=== PATIENT | female | born 1990 | race Caucasian/White ===

== ENCOUNTER → 2024-01-26 | Outpatient (CLI) | payer MEDICAID, SELFPAY ==
--- NOTE | 2024-01-26 08:45 | XR_ITS ---
Examination: MRI brain without intravenous contrast. Date and time of exam: January 26, 2024 0848 hrs. Indications: Headaches with vision loss dizziness episodes beginning one year ago, episodes lasting up to 40 seconds Technique: Multiple axial and sagittal images of the brain obtained. Siemens high-resolution 1.5 Feli short bore scanners utilized. Sagittal sections, T1-weighted, TR 500, TE 14, are performed. Axial sections proton-density and T2-weighted have been obtained. Inversion recovery axial images, TR 9, 260, TE 111, TI 2500. Diffusion weighted images, axial sections, TR 4800, TE 128, B value 1000 Axial sections, ADC map, TR 4800, TE 128 Findings: Enlargement of the sella turcica is not present. The optic chiasm and infundibular are not remarkable. Prepontine and interpeduncular cisterns are not enlarged. There is no localized enlargement of the medulla or desiree. Fourth ventricle and cerebellar tonsils appear normal in position. No subacute area of hemorrhage density is seen. Mass in the cerebellopontine angle region is not evident. Globes symmetrical. Orbital musculature including medial lateral rectus muscles do not exhibit abnormality. Diffusion-weighted images demonstrate no focus of restricted diffusion. Single punctate focus increased signal left parietal lobe FLAIR image 15 Mass effect upon the ventricular system is not identified. Impression: Negative for acute hemorrhage, mass effect or midline shift Negative for acute infarct Single punctate focus increased signal left parietal lobe, seen with early demyelinating disease, clinical correlation advised
== END | disposition home or self-care (01) ==
LOC: SMRI 07:58
PROVIDERS: PCP Physician Assistant; Referring Provider Physician Assistant; Visit Provider Physician Assistant
DX: G93.9 Disorder of brain, unspecified (principal)
CPT/HCPCS: 70551

== ENCOUNTER 2024-02-29 12:54 | Emergency (ER) | payer MEDICAID, SELFPAY ==
[2024-02-29 13:11] VITALS: BP 119/79; PULSE 86; RESP 18; TEMP 36.8; O2SAT 99; BMI 24.3
--- NOTE | 2024-02-29 13:14 | XR_ITS ---
Examination: CT brain head without contrast. 2-D sagittal coronal reconstructions Date and time of exam:February 28, 2024 1609 hrs. Indications: Onset sharp head pain and dizziness today CTDI: vol (mGy):45.9 DLP: (mGycm):927 Technique: Multiple CT axial sections of the brain have been obtained, 5 mm slice thickness. Contrast has not been administered. 2-D sagittal, coronal reconstructions have been obtained Low dose protocols were performed. One or more of the following dose reduction techniques were used; automated exposure control, adjustment of the mA and/or KV according to patient size, use of iterative reconstruction technique. Findings: No significant ventricular enlargement. Intra-axial or extra-axial hemorrhage density is not seen. No mass effect or midline shift Basal cisterns are not remarkable. Fourth ventricle is midline. Cranial vault intact. Impression: Negative for acute hemorrhage, mass effect or midline shift If symptoms persist, consider brain MRI follow-up
--- NOTE | 2024-02-29 13:14 | EKG_ITS ---
[facility] Test Date: 2024-02-29 Pat Name: VERONICA SOLIS Department: Room: - Gender: Female Human Resource Adviser: : 1990 Requested By: Gee Lynch Order Number: [id number] Reading MD: Gee Lynch Measurements Intervals [place] Rate: 91 P: 57 RI: 172 QRS: 98 QRSD: 89 T: -24 QT: 350 QTc: 433 Interpretive Statements SINUS RHYTHM BORDERLINE RIGHT AXIS DEVIATION [QRS AXIS > 90] POSSIBLE RIGHT VENTRICULAR CONDUCTION DELAY [RSR (QR) IN V1/V2] MODERATE T-WAVE ABNORMALITY, CONSIDER INFERIOR ISCHEMIA [-0.1+ mV T WAVE IN II/aVF] Compared to ECG 05/09/2022 05:47:34 Possible ischemia now present T-wave abnormality still present /store/S0/[id number]/ecg/[id number].pdf
--- NOTE | 2024-02-29 13:14 | PD.EDRME ---
[facility] Arrival date/time: 02/29/24 12:54 33-year-old female with no known medical history presents to the emergency room with a chief complaint of a sudden onset of a 10 out of 10 headache, loss of vision, chest pain and palpitations 1 hour ago. I have greeted and performed a focused initial assessment of this patient. A comprehensive ED assessment and evaluation of the patient, analysis of all test results, and completion of the medical decision making process will be conducted by additional ED providers. Chief Complaint: Headache Time Seen by Provider: 02/29/24 13:08 Vital signs: Vital Signs Temperature 98.3 F 02/29/24 13:11 Pulse Rate 86 02/29/24 13:11 Respiratory Rate 18 02/29/24 13:11 Blood Pressure 119/79 02/29/24 13:11 Pulse Oximetry (%) 99 02/29/24 13:11 Oxygen Delivery Method Room Air 02/29/24 13:11 Vital signs reviewed by provider: Yes
[2024-02-29 13:42] LABS: Collection Type, Urine Clean Catch
[2024-02-29 13:51] LABS: Basophils % (Auto) 0 % (0-2.5); Eosinophils # (Auto) 0.2 Thou/mm3 (0.0-0.5); Eosinophils % (Auto) 4 % (0-10); Hemoglobin 12.4 g/dL (12.0-16.0); Immature Granulocytes % (Auto) 0 % (0-0); Immature Granulocytes Auto 0.01 Thou/mm3 (0.00-0.00); Lymphocytes % (Auto) 22 % (10-50); Mean Corpuscular HGB Conc 33.5 g/dl (31.0-37.0); Mean Corpuscular Hemoglobin 28.8 pg (25.0-35.0); Mean Corpuscular Volume 86 fL (80-100); Monocytes # (Auto) 0.4 Thou/mm3 (0.0-0.8); Monocytes % (Auto) 8 % (0-12); Neutrophils % (Auto) 66 % (37-80); Nucleated Red Blood Cell % 0 /100 WBC (0); Platelet Count 270 Thou/mm3 (140-440); White Blood Count 4.6 Thou/mm3 (3.6-11.0)
[2024-02-29 13:55] LABS: Bacteria,Urine Rare; Bilirubin,Urine Negative (Negative); Blood,Urine Trace (Negative); Clarity,Urine Clear (Clear/Hazy); Color,Urine Lt-Yellow (Lt Yel-Yel); Glucose, Urine Negative (Negative); Ketones,Urine Negative (Negative); Leukocyte Esterase,Urine Negative (Negative); Nitrite,Urine Negative (Negative); Protein,Urine Negative (Neg - Trace); RBC,Urine 2 /hpf (0-3); Specific Gravity,Urine 1.021 (1.001-1.035); Squamous Epithelial Cell,Urine 4 /hpf (0-5); Urobilinogen,Urine Negative mg/dL (0.0-1.0); WBC,Urine 1 /hpf (0-5)
[2024-02-29 14:12] LABS: Alanine Aminotransferase 12 U/L (10-49); Albumin, Serum 4.9 gm/dL (3.5-5.0); Albumin/Globulin Ratio 1.8 (1.2-2.2); Alkaline Phosphatase 64 U/L (46-116); Anion Gap 5 (7-16); Aspartate Amino Transferase < 10 U/L (0-34); BUN/Creatinine Ratio 14 Ratio (12-20); Bilirubin,Total 0.4 mg/dL (0.3-1.2); Blood Urea Nitrogen 11 mg/dL (9-23); Calcium 10.4 mg/dL (8.3-10.6); Calcium (Corrected) 10.4 mg/dL (8.5-10.1); Carbon Dioxide 27.7 mMol/L (20.0-31.0); Chloride 104 mMol/L (98-107); Creatinine (Component) 0.8 mg/dL (0.6-1.3); Estimated Creatinine Clearance 95.4 mL/min (>60); Globulin 2.8 gm/dL (2.3-3.5); Glucose 117 mg/dL (74-106); Osmolality,Calculated 274 (275-295); Potassium 4.1 mMol/L (3.4-5.1); Sodium 137 mMol/L (136-145); Total Protein 7.7 gm/dL (5.7-8.2); Troponin I < 0.002 ng/mL (0.0-0.045); eGFR > 60 See Note
[2024-02-29 17:04] VITALS: BP 116/74; PULSE 70; RESP 18; TEMP 37; O2SAT 99
--- NOTE | 2024-02-29 17:46 | EDNOTE_ITS ---
<Statement entered by Almaz Kathleen MD - 03/06/24 16:21> As co-signing physician, I was present and available for consult prn. I concur with the plan and care as documented by the midlevel provider. ED General RME/HPI General Chief complaint: Headache Stated complaint: HEADACHE WITH CHEST PAIN Time Seen by Provider: 02/29/24 13:08 Arrival date/time: 02/29/24 12:54 CC: Headache loss of vision onset approximately 4 hours ago, no prior history of similar events patient states she is also had mild chest pain and palpitations. These have all resolved other than a mild headache. Patient states she has had 3 episodes of the headache since signing in, but no loss of vision. Patient was observed ambulating from the waiting room without any complication looking around stating that sure vision has recovered completely. Patient denies any nausea vomiting shortness of breath difficulty breathing or fever. Patient informs me that she already has a follow-up with a neurologist via referral from her PCP for the same thing. RME / HPI RME / HPI narrative: 02/29/24 12:54 33-year-old female with no known medical history presents to the emergency room with a chief complaint of a sudden onset of a 10 out of 10 headache, loss of vision, chest pain and palpitations 1 hour ago. I have greeted and performed a focused initial assessment of this patient. A comprehensive ED assessment and evaluation of the patient, analysis of all test results, and completion of the medical decision making process will be conducted by additional ED providers. Related Data Home Medications ?Medication ?Instructions ?Recorded ?Confirmed doxycycline monohydrate 100 mg 100 mg PO QDAY 10/14/20 10/14/20 capsule ferrous sulfate 325 mg (65 mg 325 mg PO BID 10/14/20 10/14/20 iron) tablet Previous Rx's ?Medication ?Instructions ?Recorded docusate sodium 100 mg capsule 100 mg PO BID #40 caps 10/15/20 (Colace) hydrocodone 5 mg-acetaminophen 325 1 tab PO Q6H PRN pain (scale score 10/15/20 mg tablet 7-10) #20 tabs ibuprofen 600 mg tablet 600 mg PO Q8H PRN pain (scale 10/15/20 score 4-6) #15 tabs Allergies Allergy/AdvReac Type Severity Reaction Status Date / Time No Known Allergies Allergy Verified 02/29/24 12:58 Review of Systems Review of Systems Narrative Review of Systems: GEN: No fever, no chills, no weight loss EYES: No discharge, no visual changes, no pain HEENT: No ear pain, no congestion, no sore throat PULM: No shortness of breath, no cough, no congestion CV: No chest pain, no dyspnea on exertion, no palpitations GI: No nausea, no vomiting, no diarrhea, no pain, no constipation : No frequency, no urgency, no dysuria MUSC/SKEL: No joint pain, no back pain SKIN: No rash PSYCH: No hallucinations, no depression HEME/LYMPH: No easy bleeding or bruising tendencies NEURO: No weakness, + headache Past Medical History Past Medical History NEUROLOGIC: Negative Neurological Disorders or Seizures CARDIAC: Positive Cardiac Disorders, Cardiac Arrhythmia and Atrial Fibrillation; Negative Congestive Heart Failure RESPIRATORY: Negative Chronic Obstructive Pulmonary Disease (COPD) GASTROINTESTINAL: Positive Gall Bladder Disease (gallstones); Negative Gastrointestinal Disorders or Hepatitis GENITOURINARY: Negative Genitourinary Disorders or Renal Disease REPRODUCTIVE: Positive Previous Pregnancies MUSCULOSKELETAL: Negative Musculoskeletal Disorders ENDOCRINE: Positive Hypothyroidism (NO MEDS); Negative Endocrine Disorders, Diabetes Mellitus Type 1 or Diabetes Mellitus Type 2 HEMATOLOGIC: Positive Anemia; Negative Blood Disorders OTHER HISTORY: Positive Chicken Pox; Negative Hospitalization, Autoimmune Disease, Shingles, Falls, Blood Transfusions, Blood Transfusion Reaction, Anesthesia Reactions, Chemotherapy, Radiation Therapy, MRSA, Measles, Mumps, Rubella (Tamazight Measles) or Cancer Family History FAMILY HISTORY: Positive Family Cardiac Disorders (MOTHER ([place])) and Family Surgery (MOTHER); Negative Family Psychiatric Problems, Family Respiratory Disorders, Family Gastrointestinal Problems, Family Cancer or Family Anesthesia Reaction Surgical History SURGICAL: Positive Section; Negative Cardiac Surgery, Ear Surgery, Eye Surgery, Nose Surgery, Tonsillectomy, Joint Replacement or Lumpectomy Social History SMOKING STATUS: Never smoker ED Exam Narrative Physical exam: [General: Not in any acute distress Head normocephalic HEENT: Eyes pupils are PERRLA EOMs are intact, all the subsystems of HEENT are within acceptable limits Neck is supple nontender Chest equal chest rise nontender to palpation Respiratory: Clear to auscultation no wheezes crackles or rubs CV: Rate rhythm is regular no murmurs rubs or clicks Abdomen is distended secondary to body habitus soft nontender no masses positive bowel sounds all 4 quadrants Back: No CVA tenderness no spinous process tenderness from cervical spine thoracic and lumbar spine Skin: Intact no petechiae rash induration ulceration or crepitus Extremities: Moving all extremity against resistance cap refill less than 2 seconds neurosensory intact Neuro: Awake alert oriented x3 Glascow coma 15 no focal deficits] cranial nerves II through XII are grossly intact. Course Quality Measures none Orders Category Date Time Status EKG (ED ONLY) *Do not use* NOW Care 02/29/24 13:[address] head/brain wo con Stat Exams 02/29/24 13:14 Completed EKG (ED Only) Stat Exams 02/29/24 13:14 Draft CBC Stat Lab 02/29/24 13:44 Completed Comprehensive Metabolic Panel Stat Lab 02/29/24 13:44 Completed Troponin I Stat Lab 02/29/24 13:44 Completed Urinalysis Stat Lab 02/29/24 13:34 Completed Urine Culture Stat Lab 02/29/24 13:14 Received Vital Signs Vital signs: Vital Signs Temperature 98.3 F 02/29/24 13:11 Pulse Rate 86 02/29/24 13:11 Respiratory Rate 18 02/29/24 13:11 Blood Pressure 119/79 02/29/24 13:11 Pulse Oximetry (%) 99 02/29/24 13:11 Oxygen Delivery Method Room Air 02/29/24 13:11 [facility] Patient data External records reviewed:: [facility] previous records Clinical information provided by:: patient Social determinants that could affect healthcare access:: none Patient has the following chronic illnesses:: None How is presenting disease/condition affected by chronic disease/condition?: u neffected by Evaluation data The following diagnostics were reviewed and interpreted by me:: lab results and radiology exam(s) Lab and/or radiology exams considered but not ordered:: CT of the head is interpreted by me read by radiology as negative for any acute finding CBC shows no acute leukocytosis anemia thrombocytopenia CMP shows no acute electrolyte imbalances renal impairment transaminitis or T. bili elevation Urine is negative Interpretation Summary: All symptoms other than a headache have resolved, I suspect this is a complex migraine however this will be left to the determination of the neurologist will discharge the patient home with headache. Medications Medications considered but not ordered:: None Medication administrations:: None Consultations Consultation(s) initiated? (list below): No Diagnosis Differential Diagnosis ED Complaint MDM: Intercerebral mass, somatization, complex migraine, Most likely diagnosis given after review of the tests above:: Headache Admission Indicated Admission indicated?: not indicated Explain why admission is indicated or not indicated:: None Admission Request Was there a request for admission?: No Disposition Plan Disposition Plan: Discharge Discharge Attestation Discharge Attestation: The patient and all family members were given an opportunity to ask questions and understood the discharge instructions. Discharge instructions specifically effects, indications for sooner follow up or return to the emergency department, and the expected course of current diagnosis. Patient condition: Stable Medical Decision Making Differential Diagnosis Differential Diagnosis: Intercerebral mass, somatization, complex migraine, Lab Data 02/29/24 13:44 02/29/24 13:44 Labs: Lab Results 02/29/24 02/29/24 Range/Units 13:34 13:44 WBC 4.6 (3.6-11.0) Thou/mm3 RBC 4.30 (4.00-5.20) Miln/mm3 Hgb 12.4 (12.0-16.0) g/dL Hct 37.0 (36.0-46.0) % MCV 86 (80-100) fL MCH 28.8 (25.0-35.0) pg MCHC 33.5 (31.0-37.0) g/dl RDW Std Deviation 39.0 (36.4-46.3) fL Plt Count 270 (140-440) Thou/mm3 Neut % (Auto) 66 (37-80) % Lymph % (Auto) 22 (10-50) % [place] % (Auto) 8 (0-12) % Eos % (Auto) 4 (0-10) % Baso % (Auto) 0 (0-2.5) % Neut # (Auto) 3.0 (1.8-7.7) Thou/mm3 Lymph # (Auto) 1.0 (1.0-4.8) Thou/mm3 [place] # (Auto) 0.4 (0.0-0.8) Thou/mm3 Eos # (Auto) 0.2 (0.0-0.5) Thou/mm3 Baso # (Auto) 0.0 (0.0-0.2) Thou/mm3 Immature Gran # (Auto) 0.01 H (0.00-0.00) Thou/mm3 Absolute Nucleated RBC 0.00 (0.00-0.00) Thou/mm3 Immature Gran % 0 (0-0) % Nucleated RBC % 0 (0) /100 WBC Sodium 137 (136-145) mMol/L Potassium 4.1 (3.4-5.1) mMol/L Chloride 104 (98-107) mMol/L Carbon Dioxide 27.7 (20.0-31.0) mMol/L Anion Gap 5 L (7-16) BUN 11 (9-23) mg/dL Creatinine 0.8 (0.6-1.3) mg/dL Estim Creat Clear Calc 95.4 (>60) mL/min eGFR > 60 (60 - ) See Note BUN/Creatinine Ratio 14 (12-20) Ratio Glucose 117 H (74-106) mg/dL Calculated Osmolality 274 L (275-295) Calcium 10.4 (8.3-10.6) mg/dL Corrected Calcium 10.4 H (8.5-10.1) mg/dL Total Bilirubin 0.4 (0.3-1.2) mg/dL AST < 10 (0-34) U/L ALT 12 (10-49) U/L Alkaline Phosphatase 64 (46-116) U/L Troponin I < 0.002 (0.0-0.045) ng/mL Total Protein 7.7 (5.7-8.2) gm/dL Albumin 4.9 (3.5-5.0) gm/dL Globulin 2.8 (2.3-3.5) gm/dL Albumin/Globulin Ratio 1.8 (1.2-2.2) Ur Collection Type Clean Catch Urine Color Lt-Yellow (Lt Yel-Yel) Urine Clarity Clear (Clear/Hazy) Urine pH 6.0 (5.0-7.0) Ur Specific [place] 1.021 (1.001-1.035) Urine Protein Negative (Neg - Trace) Urine Glucose (UA) Negative (Negative) Urine Ketones Negative (Negative) Urine Blood Trace (Negative) Urine Nitrite Negative (Negative) Urine Bilirubin Negative (Negative) Urine Urobilinogen (Auto) Negative (0.0-1.0) mg/dL Ur Leukocyte Esterase Negative (Negative) Urine RBC 2 (0-3) /hpf Urine WBC 1 (0-5) /hpf Ur Squamous Epith Cells 4 (0-5) /hpf Urine Bacteria Rare (None) Discharge Plan Plan Patient Disposition: HOME (Self Care) Patient condition on transfer: Stable Prescriptions/Referrals Prescriptions/Med Rec: No Action doxycycline monohydrate 100 mg Capsule 100 mg PO QDAY ferrous sulfate 325 mg (65 mg iron) Tablet 325 mg PO BID hydrocodone-acetaminophen 5-325 mg tablet 1 tab PO Q6H MDD 4 PRN (Reason: pain (scale score 7-10)) Qty: 20 0RF docusate sodium [Colace] 100 mg capsule 100 mg PO BID Qty: 40 0RF ibuprofen 600 mg tablet 600 mg PO Q8H PRN (Reason: pain (scale score 4-6)) Qty: 15 0RF Referrals: Mary Payton PA-C [Primary Care Provider] - In 1 week Problem List Clinical Impression: Headache Patient/Caregiver Discharge Instructions Other Activity Instructions:: Follow-up with a neurologist as stated if there is a worsening of symptoms return the emergency room immediately for further evaluation. Education Materials: Self-Care for Headaches Print Language: Cuban Stand Alone Forms: Nikole Award Info., Patient Portal Info Letter, Work/School Release PA/BOAT RENTAL CLERK Supervising Physician PA/BOAT RENTAL CLERK Supervising Physician: Gilmar Estrada ENP
== END 2024-02-29 18:08 | disposition home or self-care (01) ==
PROVIDERS: Nurse Practitioner Family; Emergency Provider Emergency Medicine; PCP Physician Assistant
DX: R51.9 Headache, unspecified (principal)
CPT/HCPCS: 36415; 70450; 80053; 81001; 84484; 85025; 87086; 93005; 99284

== ENCOUNTER 2024-10-31 21:25 | Emergency (ER) | payer MEDICAID, SELFPAY ==
[2024-10-31 21:27] VITALS: BMI 25.0
[2024-10-31 21:31] VITALS: BP 123/81; PULSE 79; RESP 18; TEMP 36.6; O2SAT 100
--- NOTE | 2024-10-31 21:36 | XR_ITS ---
Examination: PA lateral chest 2 views Technique upright PA lateral chest 2 views Date and time: October 31, 2024 2150 hrs. Indications: Chest pain today, history atrial fibrillation Findings: Mild prominence left ventricle. No pneumonia or pulmonary edema The osseous structures are intact Impression: Mild prominence left ventricle No pneumonia or pulmonary edema
[2024-10-31 21:51] LABS: Collection Type, Urine Clean Catch
[2024-10-31 21:55] LABS: Basophils # (Auto) 0.0 Thou/mm3 (0.0-0.2); Basophils % (Auto) 0 % (0-2.5); Eosinophils # (Auto) 0.2 Thou/mm3 (0.0-0.5); Eosinophils % (Auto) 2 % (0-10); Hematocrit 37.4 % (36.0-46.0); Hemoglobin 12.2 g/dL (12.0-16.0); Immature Granulocytes Auto 0.01 Thou/mm3 (0.00-0.00); Lymphocytes # (Auto) 2.0 Thou/mm3 (1.0-4.8); Lymphocytes % (Auto) 29 % (10-50); Mean Corpuscular HGB Conc 32.6 g/dl (31.0-37.0); Mean Corpuscular Hemoglobin 28.4 pg (25.0-35.0); Mean Corpuscular Volume 87 fL (80-100); Monocytes # (Auto) 0.6 Thou/mm3 (0.0-0.8); Monocytes % (Auto) 8 % (0-12); Neutrophils # (Auto) 4.2 Thou/mm3 (1.8-7.7); Neutrophils % (Auto) 60 % (37-80); Nucleated Red Blood Cell # 0.00 Thou/mm3 (0.00-0.00); Nucleated Red Blood Cell % 0 /100 WBC (0); Platelet Count 318 Thou/mm3 (140-440); RDW Standard Deviation 40.5 fL (36.4-46.3); Red Blood Count 4.29 Miln/mm3 (4.00-5.20); White Blood Count 7.0 Thou/mm3 (3.6-11.0)
[2024-10-31 22:01] LABS: HCG Qualitative,Urine Negative
--- NOTE | 2024-10-31 22:03 | PD.EDRME ---
Rapid Medical Screening Exam E Arrival date/time: 10/31/24 21:25 34F with history of afib/SVT (s/p 2 ablations) and lupus (not on biologic) presents to ED with 2 days of intermittent CP that radiates down L arm. Patient has also had intermittent VAN and blurry vision for 5 days. Chief Complaint: Chest Pain Vital signs: Vital Signs Temperature 97.8 F 10/31/24 21:31 Pulse Rate 79 10/31/24 21:31 Respiratory Rate 18 10/31/24 21:31 Blood Pressure 123/81 10/31/24 21:31 Pulse Oximetry (%) 100 10/31/24 21:31 Oxygen Delivery Method Room Air 10/31/24 21:31
[2024-10-31 22:07] LABS: Bacteria,Urine Rare; Bilirubin,Urine Negative (Negative); Blood,Urine Negative (Negative); Clarity,Urine Turbid (Clear/Hazy); Color,Urine Yellow (Lt Yel-Yel); Culture Indicated,Urine Not Indicated; Glucose, Urine Negative (Negative); Ketones,Urine Negative (Negative); Leukocyte Esterase,Urine Negative (Negative); Nitrite,Urine Negative (Negative); PH,Urine 6.0 (5.0-7.0); Protein,Urine Trace (Neg - Trace); RBC,Urine 4 /hpf (0-3); Specific Gravity,Urine 1.031 (1.001-1.035); Squamous Epithelial Cell,Urine 13 /hpf (0-5); Urobilinogen,Urine 2.0 mg/dL (0.0-1.0); WBC,Urine 6 /hpf (0-5)
[2024-10-31 22:20] LABS: B-Type Natriuretic Peptide < 20 pg/mL (0-100)
[2024-10-31 22:30] LABS: Alanine Aminotransferase 11 U/L (10-49); Albumin, Serum 4.7 gm/dL (3.5-5.0); Albumin/Globulin Ratio 1.7 (1.2-2.2); Alkaline Phosphatase 82 U/L (46-116); Anion Gap 9 (7-16); Aspartate Amino Transferase 17 U/L (0-34); BUN/Creatinine Ratio 10 Ratio (12-20); Bilirubin,Total 0.3 mg/dL (0.3-1.2); Blood Urea Nitrogen 8 mg/dL (9-23); Calcium 10.3 mg/dL (8.3-10.6); Calcium (Corrected) 10.3 mg/dL (8.5-10.1); Carbon Dioxide 27.6 mMol/L (20.0-31.0); Chloride 104 mMol/L (98-107); Creatinine (Component) 0.8 mg/dL (0.6-1.3); Estimated Creatinine Clearance 94.5 mL/min (>60); Globulin 2.7 gm/dL (2.3-3.5); Glucose 94 mg/dL (74-106); Lipase 30 U/L (12-53); Osmolality,Calculated 279 (275-295); Potassium 3.9 mMol/L (3.4-5.1); Sodium 141 mMol/L (136-145); Total Protein 7.4 gm/dL (5.7-8.2); Troponin I < 0.002 ng/mL (0.0-0.045); eGFR > 60 See Note
[2024-11-01 00:05] VITALS: BP 125/46; PULSE 66; RESP 16; TEMP 36.9; O2SAT 100
[2024-11-01 00:11] VITALS: PULSE 68
--- NOTE | 2024-11-01 00:20 | PD.EDCHEST ---
ED Chest Pain RME/HPI General Chief Complaint: Chest Pain Stated Complaint: CHEST PAIN Arrival date/time: 10/31/24 21:25 RME / HPI RME / HPI narrative: 10/31/24 21:25 34F with history of afib/SVT (s/p 2 ablations) and lupus (not on biologic) presents to ED with 2 days of intermittent CP that radiates down L arm. Patient has also had intermittent VAN and blurry vision for 5 days. -------- Dr. Foster?s Main ED Evaluation: 34yo female with a history of aFib/SVT s/p 2 ablations presents to the ED for a chief complaint of intermittent chest pain for the last 2 days. Patient's pain got progressively worse around 1600 and was radiating down her left arm, so she came in for evaluation. Patient denies any shortness of breath, palpitations, or any other associated symptoms. She does not currently follow-up with a finance vice president. NKA. Related Data Home Medications ?Medication ?Instructions ?Recorded ?Confirmed doxycycline monohydrate 100 mg 100 mg PO QDAY 10/14/20 10/14/20 capsule ferrous sulfate 325 mg (65 mg 325 mg PO BID 10/14/20 10/14/20 iron) tablet Previous Rx's ?Medication ?Instructions ?Recorded docusate sodium 100 mg capsule 100 mg PO BID #40 caps 10/15/20 (Colace) hydrocodone 5 mg-acetaminophen 325 1 tab PO Q6H PRN pain (scale score 10/15/20 mg tablet 7-10) #20 tabs ibuprofen 600 mg tablet 600 mg PO Q8H PRN pain (scale 10/15/20 score 4-6) #15 tabs Allergies Allergy/AdvReac Type Severity Reaction Status Date / Time No Known Allergies Allergy Verified 02/29/24 12:58 Review of Systems Review of Systems Systems Reviewed: All systems reviewed, normal except as documented Past Medical History Past Medical History NEUROLOGIC: Positive Migraine; Negative Neurological Disorders or Seizures CARDIAC: Positive Cardiac Disorders, Cardiac Arrhythmia (SVT) and Atrial Fibrillation; Negative Congestive Heart Failure RESPIRATORY: Negative Chronic Obstructive Pulmonary Disease (COPD) GASTROINTESTINAL: Positive Gall Bladder Disease; Negative Gastrointestinal Disorders or Hepatitis GENITOURINARY: Negative Genitourinary Disorders or Renal Disease REPRODUCTIVE: Positive Previous Pregnancies MUSCULOSKELETAL: Positive Fibromyalgia; Negative Musculoskeletal Disorders ENDOCRINE: Positive Hypothyroidism and Systemic Lupus Erythematosus; Negative Endocrine Disorders, Diabetes Mellitus Type 1 or Diabetes Mellitus Type 2 HEMATOLOGIC: Positive Anemia; Negative Blood Disorders OTHER HISTORY: Positive Hospitalization and Chicken Pox; Negative Autoimmune Disease, Shingles, Falls, Blood Transfusions, Blood Transfusion Reaction, Anesthesia Reactions, Chemotherapy, Radiation Therapy, MRSA, Measles, Mumps, Rubella (Telugu Measles) or Cancer Family History FAMILY HISTORY: Positive Family Cardiac Disorders and Family Surgery; Negative Family Psychiatric Problems, Family Respiratory Disorders, Family Gastrointestinal Problems, Family Cancer or Family Anesthesia Reaction Surgical History SURGICAL: Positive Section; Negative Cardiac Surgery, Ear Surgery, Eye Surgery, Nose Surgery, Tonsillectomy, Joint Replacement or Lumpectomy Social History SMOKING STATUS: Never smoker ED Exam Narrative Physical exam: Generally patient is alert and in no obvious distress, heart regular rate and rhythm, lungs clear to auscultation equal bilaterally, abdomen soft bowel sounds present nondistended nontender, skin is warm and dry, extremities show no edema, neurologic exam showed [place] Coma Scale of 15 without focal motor deficit Course Course Course Narrative: CXR is ordered for determining the etiology of chest pain. Quality Measures none Orders Category Date Time Status Prosthodontist Q4H START 00 Care 11/01/24 00:04 Active EKG (ED ONLY) *Do not use* NOW Care 10/31/24 21:28 Completed EKG (ED Only) Stat Exams 10/31/24 21:28 Ordered XR chest 2V Stat Exams 10/31/24 21:36 Completed BNP [B-Type Natriuretic Peptide] Stat Lab 10/31/24 21:41 Completed CBC Stat Lab 10/31/24 21:41 Completed CMP [Comprehensive Metabolic Panel] Stat Lab 10/31/24 21:41 Completed HCG Qualitative,Urine Stat Lab 10/31/24 21:41 Completed Lipase Stat Lab 10/31/24 21:41 Completed Troponin I Stat Lab 10/31/24 21:41 Completed Troponin I Stat Lab 11/01/24 00:51 Completed UA, C/S IF [Urinalysis, C/S if Indicated] Stat Lab 10/31/24 21:41 Completed Vital Signs Vital signs: Vital Signs Temperature 97.8 F 10/31/24 21:31 Pulse Rate 79 10/31/24 21:31 Respiratory Rate 18 10/31/24 21:31 Blood Pressure 123/81 10/31/24 21:31 Pulse Oximetry (%) 100 10/31/24 21:31 Oxygen Delivery Method Room Air 10/31/24 21:31 Chest Pain MDM Narrative MDM Narrative:: Scribe Attestation: 11/01/24 Vaishali Go am scribing for and in the presence of Dr. Foster. EKG obtained at 9:28 PM shows normal sinus rhythm at a rate of 72 with an incomplete right bundle branch block. 2 separate troponins are not elevated. Chest x-ray is normal. Patient is chest pain-free at the time of discharge. She is to follow-up with her finance vice president. Return if pain becomes more severe or becomes more frequent or lasts longer. Differential diagnosis: Acute coronary syndrome, noncardiac chest pain, musculoskeletal pain Patient data External records reviewed:: [facility] previous records (Per chart review, patient was seen here on 02/29/24 for a headache.) Clinical information provided by:: patient Social determinants that could affect healthcare access:: none Patient has the following chronic illnesses:: aFib How is presenting disease/condition affected by chronic disease/condition?: uneffected by Evaluation data The following diagnostics were reviewed and interpreted by me:: lab results, radiology exam(s) and EKG tracing(s) Lab and/or radiology exams considered but not ordered:: none Interpretation Summary: [place] [facility] Report Signed Patient: VERONICA SOLIS [facility]. Record#: [id number] Birthdate: 1990 Age/Sex: 34 / F Location: [facility] Attending Dr: Ordering Physician: Temporary Provider,ED Date of Service: 10/31/24 Procedure(s): XR chest 2V Accession Number(s): [id number] cc: Pramod Duvall MD; Temporary Provider,ED ~ Examination: PA lateral chest 2 views Technique upright PA lateral chest 2 views Date and time: October 31, 2024 2150 hrs. Indications: Chest pain today, history atrial fibrillation Findings: Mild prominence left ventricle. No pneumonia or pulmonary edema The osseous structures are intact Impression: Mild prominence left ventricle No pneumonia or pulmonary edema Dictated By: Pramod Duvall MD Signed By: <Electronically signed by Pramod Duvall MD in OV> 10/31/24 2201 Medications / Prescriptions Medications or Prescriptions considered but not ordered:: none Medication administrations:: none Consultations Consultation(s) initiated? (list below): No Diagnosis Chest Pain Differential Diagnosis: other (See MDM.) Most likely diagnosis given after review of the tests above:: see clinical impression below Admission Indicated Admission indicated?: not indicated Admission Request Was there a request for admission?: No Disposition Plan Disposition Plan: Discharge Discharge Attestation Discharge Attestation: The patient and all family members were given an opportunity to ask questions and understood the discharge instructions. Discharge instructions specifically effects, indications for sooner follow up or return to the emergency department, and the expected course of current diagnosis. Patient condition: Stable Discharge Plan Plan Patient Disposition: HOME (Self Care) Prescriptions/Referrals Prescriptions/Med Rec: No Action doxycycline monohydrate 100 mg Capsule 100 mg PO QDAY ferrous sulfate 325 mg (65 mg iron) Tablet 325 mg PO BID hydrocodone-acetaminophen 5-325 mg tablet 1 tab PO Q6H MDD 4 PRN (Reason: pain (scale score 7-10)) Qty: 20 0RF docusate sodium [Colace] 100 mg capsule 100 mg PO BID Qty: 40 0RF ibuprofen 600 mg tablet 600 mg PO Q8H PRN (Reason: pain (scale score 4-6)) Qty: 15 0RF Referrals: Mary Payton PA-C [Primary Care Provider, Family Practice] - In 1 week Problem List Clinical Impression: Chest pain Patient/Caregiver Discharge Instructions Education Materials: ED Chest Pain, Uncertain Cause Additional Instructions: Return if chest pain worsens. Follow-up with your finance vice president. Print Language: Vietnamese Stand Alone Forms: Nikole Award Info., Patient Portal Info Letter
[2024-11-01 01:21] LABS: Troponin I < 0.002 ng/mL (0.0-0.045)
[2024-11-01 02:00] VITALS: BP 110/57; PULSE 77; RESP 18; TEMP 36.9; O2SAT 100
== END 2024-11-01 02:08 | disposition home or self-care (01) ==
PROVIDERS: Emergency Provider Emergency Medicine; PCP Physician Assistant
DX: R07.9 Chest pain, unspecified (principal); I45.10 Unspecified right bundle-branch block; I48.91 Unspecified atrial fibrillation; M32.9 Systemic lupus erythematosus, unspecified; E03.9 Hypothyroidism, unspecified
CPT/HCPCS: 36415; 71046; 80053; 81001; 81025; 83690; 83880; 84484; 85025; 93005; 99284